=== PATIENT | female | born 1990 | race Caucasian/White ===

== ENCOUNTER 2018-09-20 19:29 | Emergency (ER) | payer OTHER ==
--- NOTE | 2018-09-20 19:45 | EDM.PDOC ---
ED HPI GENERAL MEDICAL PROBLEM - General Chief Complaint: Genitourinary Problem Stated Complaint: BLADDER INFECTION Time Seen by Provider: 09/20/18 19:38 Source of Information: Reports: Patient History Limitations: Reports: No Limitations - History of Present Illness INITIAL COMMENTS - FREE TEXT/NARRATIVE: Patient presents with complaints of urinary frequency, burning, lack of feeling empty, no blood. Has taken AZO at home with no results yet. No other symptoms. States this started about 2 hours ago. Mild general abdominal pain. Denies . States she had a physical 2 weeks ago and was tested. This was negative. Onset: Today, Sudden - Related Data Allergies Allergy/AdvReac Type Severity Reaction Status Date / Time nitrofurantoin Allergy Hives Verified 09/20/18 19:43 [From Macrobid] Home Meds: Home Meds Cranberry 1 cap PO DAILY 09/20/18 [History] Multivitamin with Minerals [Hair, Skin and Nails] 1 tab PO DAILY 09/20/18 [ History] Norgestrel-Ethinyl Estradiol [Elinest-28 Tablet] 1 tab PO DAILY 09/20/18 [ History] ED ROS GENERAL - Review of Systems Review Of Systems: See Below Constitutional: Reports: No Symptoms HEENT: Reports: No Symptoms Respiratory: Reports: No Symptoms Cardiovascular: Reports: No Symptoms Endocrine: Reports: No Symptoms GI/Abdominal: Reports: Abdominal Pain : Reports: Dysuria, Frequency, Urinary Retention Musculoskeletal: Reports: No Symptoms Skin: Reports: No Symptoms Neurological: Reports: No Symptoms Psychiatric: Reports: No Symptoms Hematologic/Lymphatic: Reports: No Symptoms Immunologic: Reports: No Symptoms ED EXAM, RENAL/ - Physical Exam Exam: See Below Exam Limited By: No Limitations General Appearance: Alert, WD/WN, No Apparent Distress Respiratory/Chest: No Respiratory Distress, Lungs Clear, Normal Breath Sounds, No Accessory Muscle Use, Chest Non-Tender Cardiovascular: Normal Peripheral Pulses, Regular Rate, Rhythm, No Edema, No Gallop, No JVD, No Murmur, No Rub GI/Abdominal: Normal Bowel Sounds, Soft, Non-Tender, No Organomegaly, No Distention, No Abnormal Bruit, No Mass Neurological: Alert, Oriented, CN II-XII Intact, Normal Cognition, Normal Gait, Normal Reflexes, No Motor/Sensory Deficits Psychiatric: Normal Affect, Normal Mood Course - Orders/Labs/Meds Orders: Active Orders 24 hr Category Date Time Status CULTURE URINE [RM] Stat Lab 09/20/18 19:39 Ordered UA W/MICROSCOPIC [URIN] Stat Lab 09/20/18 19:39 Ordered Departure - Departure Time of Disposition: 19:54 Disposition: Home, Self-Care 01 Condition: Good Clinical Impression: UTI, Urinary tract infectious disease - Discharge Information *PRESCRIPTION DRUG MONITORING PROGRAM REVIEWED*: Not Applicable *COPY OF PRESCRIPTION DRUG MONITORING REPORT IN PATIENT CELIA: Not Applicable Instructions: Urinary Tract Infection, Adult, [id number], Sulfamethoxazole; Trimethoprim, SMX-TMP tablets Forms: ED Department Discharge Additional Instructions: Plan 1. Stay well hydrated 2. Take the full course of bactrim. 1 tablet twice a day for 3 days. Your first dose given here tonight, so 2 doses Friday and Friday, 1 dose Friday 3. Eat yogurt or take probiotics to prevent C. Difficile, a bacterial infection of the colon due to antibiotic use 4. Culture will be grown and a new antibiotic started if the bacteria is resistant to Bactrim 5. Please follow up at the clinic for any additional symptoms 6. Call if you have any further questions or concerns - Problem List & Annotations (1) UTI, Urinary tract infectious disease SNOMED Code(s): 56610188 Code(s): N39.0 - URINARY TRACT INFECTION, SITE NOT SPECIFIED Status: Acute Priority: Low - Problem List Review Problem List Initiated/Reviewed/Updated: Yes - My Orders Last 24 Hours: My Active Orders 09/20/18 19:39 CULTURE URINE [RM] Stat UA W/MICROSCOPIC [URIN] Stat - Assessment/Plan Last 24 Hours: My Active Orders 09/20/18 19:39 CULTURE URINE [RM] Stat UA W/MICROSCOPIC [URIN] Stat Assessment:: urinary tract infection Plan: Plan 1. Stay well hydrated 2. Take the full course of bactrim. 1 tablet twice a day for 3 days. Your first dose given here tonight, so 2 doses Friday and Friday, 1 dose Friday 3. Eat yogurt or take probiotics to prevent C. Difficile, a bacterial infection of the colon due to antibiotic use 4. Culture will be grown and a new antibiotic started if the bacteria is resistant to Bactrim 5. Please follow up at the clinic for any additional symptoms 6. Call if you have any further questions or concerns
[2018-09-20] MEDS ORDERED: Sulfamethoxazole/Trimethoprim 800-160 MG Tab PO ONE (19:47)
[2018-09-20] MEDS ORDERED: Take Home: Phenazopyridine 95 MG Tab, 4 Tab Pack ONE (21:04)
== END 2018-09-20 20:05 | disposition home or self-care (01) ==
LOC: VM.ED 19:29
DX: N39.0 Urinary tract infection, site not specified (principal); B96.20 Unspecified Escherichia coli [E. coli] as the cause of diseases classified elsewhere
CPT/HCPCS: 81001; 87086; 87088; 87186; 99283; A9270

== ENCOUNTER 2023-02-15 16:56 | Emergency (ER) | payer OTHER | END 2023-02-15 17:31 | disposition home or self-care (01) | LOC: VM.ED 16:56 | DX: J06.9 Acute upper respiratory infection, unspecified (principal); Z79.899 Other long term (current) drug therapy; Z88.1 Allergy status to other antibiotic agents | CPT/HCPCS: 99283 ==

== ENCOUNTER 2023-02-16 12:08 | Emergency (ER) | payer OTHER ==
[2023-02-16] MEDS: predniSONE 20 MG Tab PO ONE (12:50)
[2023-02-17] MEDS ORDERED: predniSONE 20 MG Tab PO SCH (09:00)
[2023-02-17] MEDS ORDERED: predniSONE 20 MG Tab PO ONE (12:26)
== END 2023-02-16 13:05 | disposition home or self-care (01) ==
LOC: VM.ED 12:08
DX: L23.9 Allergic contact dermatitis, unspecified cause (principal); Z79.899 Other long term (current) drug therapy; Z88.8 Allergy status to other drugs, medicaments and biological substances; Z88.1 Allergy status to other antibiotic agents
CPT/HCPCS: 99282; 99283; J7512